=== PATIENT | male | born 1995 | race American Indian/Alaskan Native ===

== ENCOUNTER 2017-07-13 10:17 | Emergency (ER) | payer SELFPAY ==
[2017-07-13 10:30] VITALS: BP 135/75
[2017-07-13] MEDS ORDERED: MOTRIN PO ONE (11:32)
--- NOTE | 2017-07-13 11:36 | Emergency Department Report ---
ED ENT HPI - General Chief complaint: Dental/Oral Stated complaint: TOOTHACHE Time Seen by Provider: 07/13/17 11:20 Source: patient Mode of arrival: Ambulatory Limitations: No Limitations - History of Present Illness Initial comments: This is a 21-year-old male nontoxic, well nourished in appearance, no acute signs of distress presents to the ED with c/o of left dental pain x2 days. Patient denies any facial swelling, nausea, vomiting, chest pain, shortness of breathe, fever, chills, headache, numbness, or tingling. Patient denies any allergies or PMH. Denies follow-up with dentist. MD complaint: tooth pain -: days(s) (2) Location: tooth # (19) 1 - toothache Severity: mild Severity scale (0 -10): 8 Quality: aching Consistency: constant Improves with: none Worsens with: none Associated Symptoms: gum swelling, toothache. denies: fever, cough, pain with swallowing, sore throat, tinnitus, hearing loss, discharge from ear, rhinorrhea - Related Data Home Medications Medication Instructions Recorded Confirmed Last Taken Divalproex Sodium [Depakote] 500 mg PO DAILY 03/28/17 03/28/17 2 Weeks Ago ~03/14/17 Previous Rx's Medication Instructions Recorded Last Taken Type Divalproex Sodium [Depakote] 500 mg PO DAILY #60 tablet. 03/28/17 Unknown Rx Amoxicillin/K Clav Tab [Augmentin 1 tab PO Q12HR #20 tab 07/13/17 Unknown Rx 875 mg] Chlorhexidine Mouthwash [Peridex] 15 ml MM BID #1 bottle 07/13/17 Unknown Rx Ibuprofen [Motrin] 600 mg PO Q8H PRN #30 tablet 07/13/17 Unknown Rx Allergies Allergy/AdvReac Type Severity Reaction Status Date / Time No Known Allergies Allergy Unverified 03/28/17 13:56 ED Dental HPI - General Chief complaint: Dental/Oral Stated complaint: TOOTHACHE Time Seen by Provider: 07/13/17 11:20 Source: patient Mode of arrival: Ambulatory Limitations: No Limitations - Related Data Home Medications Medication Instructions Recorded Confirmed Last Taken Divalproex Sodium [Depakote] 500 mg PO DAILY 03/28/17 03/28/17 2 Weeks Ago ~03/14/17 Previous Rx's Medication Instructions Recorded Last Taken Type Divalproex Sodium [Depakote] 500 mg PO DAILY #60 tablet. 03/28/17 Unknown Rx Amoxicillin/K Clav Tab [Augmentin 1 tab PO Q12HR #20 tab 07/13/17 Unknown Rx 875 mg] Chlorhexidine Mouthwash [Peridex] 15 ml MM BID #1 bottle 07/13/17 Unknown Rx Ibuprofen [Motrin] 600 mg PO Q8H PRN #30 tablet 07/13/17 Unknown Rx Allergies Allergy/AdvReac Type Severity Reaction Status Date / Time No Known Allergies Allergy Unverified 03/28/17 13:56 ED Review of Systems ROS: Stated complaint: TOOTHACHE Other details as noted in HPI Constitutional: denies: chills, fever Eyes: denies: eye pain, eye discharge, vision change ENT: dental pain. denies: ear pain, throat pain Respiratory: denies: cough, shortness of breath, wheezing Cardiovascular: denies: chest pain, palpitations Endocrine: no symptoms reported Gastrointestinal: denies: abdominal pain, nausea, diarrhea Genitourinary: denies: urgency, dysuria Musculoskeletal: denies: back pain, joint swelling, arthralgia Skin: denies: rash, lesions Neurological: denies: headache, weakness, paresthesias Psychiatric: denies: anxiety, depression Hematological/Lymphatic: denies: easy bleeding, easy bruising ED Past Medical Hx - Past Medical History Hx Seizures: Yes - Surgical History Past Surgical History?: No - Social History Smoking Status: Never Smoker Substance Use Type: None - Medications Home Medications: Home Medications Medication Instructions Recorded Confirmed Last Taken Type Divalproex Sodium [Depakote] 500 mg PO DAILY 03/28/17 03/28/17 2 Weeks Ago History ~03/14/17 Divalproex Sodium [Depakote] 500 mg PO DAILY #60 tablet. 03/28/17 Unknown Rx Amoxicillin/K Clav Tab [Augmentin 1 tab PO Q12HR #20 tab 07/13/17 Unknown Rx 875 mg] Chlorhexidine Mouthwash [Peridex] 15 ml MM BID #1 bottle 07/13/17 Unknown Rx Ibuprofen [Motrin] 600 mg PO Q8H PRN #30 tablet 07/13/17 Unknown Rx ED Physical Exam - General Limitations: No Limitations General appearance: alert, in no apparent distress - Head Head exam: Present: atraumatic, normocephalic - Eye Eye exam: Present: normal appearance - ENT ENT exam: Present: mucous membranes moist, TM's normal bilaterally, normal external ear exam - Expanded ENT Exam Expanded Ear exam: Present: normal external inspection Mouth exam: Present: normal external inspection, tongue normal. Absent: drooling, trismus, muffled voice, tongue elevation, laceration Teeth exam: Present: dental caries, fractured tooth # (19), dental tenderness # (19), gingival enlargement, other (No facial swelling. ) 1 - Fractured, Dental Tenderness Throat exam: Positive: normal inspection, other (Uvula midline. No abscess or swelling noted. ). Negative: tonsillar erythema, tonsillomegaly, tonsillar exudate, R peritonsillar mass, L peritonsillar mass - Neck Neck exam: Present: normal inspection, full ROM. Absent: tenderness, meningismus, lymphadenopathy, thyromegaly - Respiratory Respiratory exam: Present: normal lung sounds bilaterally. Absent: respiratory distress, wheezes, rales, rhonchi, stridor, chest wall tenderness, accessory muscle use, decreased breath sounds, prolonged expiratory - Cardiovascular Cardiovascular Exam: Present: regular rate, normal rhythm, normal heart sounds. Absent: bradycardia, tachycardia, irregular rhythm, systolic murmur, diastolic murmur, rubs, gallop - GI/Abdominal GI/Abdominal exam: Present: soft, normal bowel sounds. Absent: distended, tenderness, guarding, rebound, rigid, diminished bowel sounds - Rectal Rectal exam: Present: deferred - Extremities Exam Extremities exam: Present: normal inspection - Back Exam Back exam: Present: normal inspection - Neurological Exam Neurological exam: Present: alert, oriented X3 - Psychiatric Psychiatric exam: Present: normal affect, normal mood - Skin Skin exam: Present: warm, dry, intact, normal color. Absent: rash ED Course Vital Signs 07/13/17 10:27 Temperature 98.6 F Pulse Rate 64 Respiratory 17 Rate Blood Pressure 135/75 O2 Sat by Pulse 99 Oximetry - Reevaluation(s) Reevaluation #1: 07/13/17 11:35 Patient is speaking in full sentences with no signs of distress noted. Critical care attestation.: If time is entered above; I have spent that time in minutes in the direct care of this critically ill patient, excluding procedure time. ED Disposition Clinical Impression: Dental caries, Gingivitis Disposition: DC- TO HOME OR SELFCARE Is pt being admited?: No Does the pt Need Aspirin: No Condition: Stable Instructions: Dental Caries (ED), Gingivitis (ED), Amoxicillin/Clavulanate Potassium (By mouth), Ibuprofen (By mouth) Additional Instructions: Follow-up with a dentist in 3-5 days or if symptoms worsen and continue return to emergency room as soon as possible. Prescriptions: Amoxicillin/K Clav Tab [Augmentin 875 mg] 1 tab PO Q12HR #20 tab Chlorhexidine Mouthwash [Peridex] 15 ml MM BID #1 bottle Ibuprofen [Motrin] 600 mg PO Q8H PRN #30 tablet PRN Reason: Pain Referrals: PRIMARY CAREMD [Primary Care Provider] - 3-5 Days RIP WILLIAM MD [Staff Physician] - 3-5 Days [facility] [Outside] - 3-5 Days [facility] [Outside] - 3-5 Days Forms: Work/School Release Form(ED)
== END 2017-07-13 11:52 | disposition home or self-care (01) ==
LOC: ED 10:17
DX: K05.10 Chronic gingivitis, plaque induced (principal); K02.9 Dental caries, unspecified
CPT/HCPCS: 99282

== ENCOUNTER 2017-07-16 20:00 | Emergency (ER) | payer SELFPAY ==
[2017-07-16 22:09] LABS: Basophils % (Auto) 0.4 % (0.0-1.8); Eosinophils % (Auto) 0.3 % (0.0-4.3); Hematocrit 47.1 % (35.5-45.6); Hemoglobin 15.7 gm/dl (11.8-15.2); Lymphocytes # (Auto) 1.8 K/mm3 (1.2-5.4); Lymphocytes % (Auto) 26.7 % (13.4-35.0); Mean Corpuscular HGB Conc 33 % (32-34); Mean Corpuscular Hemoglobin 29 pg (28-32); Mean Corpuscular Volume 88 fl (84-94); Monocytes # (Auto) 0.6 K/mm3 (0.0-0.8); Monocytes % (Auto) 8.9 % (0.0-7.3); Platelet Count 227 K/mm3 (140-440); Red Blood Count 5.37 M/mm3 (3.65-5.03); Red Cell Distribution Width 13.8 % (13.2-15.2)
[2017-07-16 22:28] LABS: Alanine Aminotransferase 6 units/L (7-56); Albumin 3.6 g/dL (3.9-5); BUN/Creatinine Ratio 10; Blood Urea Nitrogen 11 mg/dL (9-20); Calcium 9.2 mg/dL (8.4-10.2); Hemolysis Index 22; Lipase 16 units/L (13-60)
[2017-07-16 22:29] LABS: Bacteria,Urine 1+ /HPF (Negative); Bilirubin,Urine NEG (Negative); Blood,Urine SM (Negative); Color,Urine Yellow (Yellow); Mucus,Urine FEW /HPF; Nitrite,Urine NEG (Negative); Urobilinogen,Urine < 2.0 mg/dL (<2.0)
[2017-07-17] MEDS ORDERED: NACL 0.9% 1000 ML 1,000 ML IV ONE (03:16)
[2017-07-17] MEDS ORDERED: ZOFRAN IV ONE (03:16)
--- NOTE | 2017-07-17 04:07 | XRay Report ---
FINAL REPORT PROCEDURE: XR ABDOMEN 2V TECHNIQUE: Abdominal series, including supine and upright AP views. HISTORY: Abd pain COMPARISON: No prior studies are available for comparison. FINDINGS: Bowel gas pattern:Nonobstructive . Masses or calcifications:There are numerous stone like densities along the left side of the lumbar spine which could be ureteral stones versus calcified mesenteric lymph nodes, or phleboliths... Bony structures:No significant abnormality . Pneumoperitoneum:None . Other:No significant findings . IMPRESSION: There is no bowel obstruction, fecal impaction, bowel wall thickening or free air.. There are numerous stone like densities along the left side of the lumbar spine which could be ureteral stones versus calcified mesenteric lymph nodes, or phleboliths...
[2017-07-17 05:58] VITALS: BP 107/50
--- NOTE | 2017-07-17 06:31 | Emergency Department Report ---
HPI - General Chief Complaint: Abdominal Pain Time Seen by Provider: 07/17/17 03:16 - HPI HPI: 21-year-old -[place]ag[place] male presents to the emergency department with complaint of some upper abdominal pain, nausea and vomiting has been going on for the past week. He denies any past medical history other than seizures. He does not have a primary care physician. He has not taken anything for her symptoms by presentation. He says that he vomits about 3 times per day. No recent travel or sick contacts at home. ED Past Medical Hx - Past Medical History Hx Seizures: Yes - Surgical History Past Surgical History?: No - Social History Smoking Status: Current Every Day Smoker Substance Use Type: None - Medications Home Medications: Home Medications Medication Instructions Recorded Confirmed Last Taken Type Divalproex Sodium [Depakote] 500 mg PO DAILY 03/28/17 03/28/17 2 Weeks Ago History ~03/14/17 Divalproex Sodium [Depakote] 500 mg PO DAILY #60 tablet. 03/28/17 Unknown Rx Amoxicillin/K Clav Tab [Augmentin 1 tab PO Q12HR #20 tab 07/13/17 Unknown Rx 875 mg] Chlorhexidine Mouthwash [Peridex] 15 ml MM BID #1 bottle 07/13/17 Unknown Rx Ibuprofen [Motrin] 600 mg PO Q8H PRN #30 tablet 07/13/17 Unknown Rx Ondansetron [Zofran Odt] 4 mg PO Q8H PRN #10 tab.rapdis 07/17/17 Unknown Rx ED Review of Systems ROS: Stated complaint: ABD PAIN; N/V Other details as noted in HPI Comment: All other systems reviewed and negative Constitutional: denies: chills, fever Eyes: denies: eye pain, eye discharge, vision change ENT: denies: ear pain, throat pain Respiratory: denies: cough, shortness of breath, wheezing Cardiovascular: denies: chest pain, palpitations Gastrointestinal: abdominal pain, nausea, vomiting Genitourinary: denies: urgency, dysuria Musculoskeletal: denies: back pain, joint swelling, arthralgia Skin: denies: rash, lesions Neurological: denies: headache, weakness, paresthesias Physical Exam - Physical Exam Vital Signs: Vital Signs 07/16/17 07/17/17 07/17/17 21:47 02:23 02:31 Temperature 98.2 F Pulse Rate 63 62 64 Respiratory 16 11 L 16 Rate Blood Pressure 139/81 O2 Sat by Pulse 98 96 Oximetry 07/17/17 07/17/17 07/17/17 02:36 02:45 03:01 Temperature 98 F Pulse Rate Respiratory 15 17 Rate Blood Pressure O2 Sat by Pulse 98 97 Oximetry 07/17/17 07/17/17 07/17/17 03:15 04:11 04:15 Temperature Pulse Rate 62 61 Respiratory 19 18 17 Rate Blood Pressure 117/57 O2 Sat by Pulse 96 96 96 Oximetry 07/17/17 07/17/17 07/17/17 04:31 04:45 05:00 Temperature Pulse Rate 67 70 69 Respiratory 16 17 18 Rate Blood Pressure 117/57 116/58 109/45 O2 Sat by Pulse 97 96 94 Oximetry 07/17/17 07/17/17 07/17/17 05:15 05:30 05:45 Temperature Pulse Rate 67 Respiratory 19 Rate Blood Pressure 105/42 107/50 107/50 O2 Sat by Pulse 94 95 97 Oximetry Physical Exam: GENERAL: The patient is well-developed well-nourished. HENT: Normocephalic. Atraumatic. Patient has moist mucous membranes. EYES: Extraocular motions are intact. Pupils equal reactive to light bilaterally. NECK: Supple. Trachea is midline. CHEST/LUNGS: Clear to auscultation. There is no respiratory distress noted. HEART/CARDIOVASCULAR: Regular. There is no tachycardia. There is no murmur. ABDOMEN: Abdomen is soft. Mild upper abdominal tenderness to palpation. No guarding rebound tenderness. Patient has normal bowel sounds. There is no abdominal distention. SKIN: Skin is warm and dry. NEURO: The patient is awake, alert, and oriented. The patient is cooperative. The patient has no focal neurologic deficits. The patient has normal speech. MUSCULOSKELETAL: There is no tenderness or deformity. There is no limitation range of motion. There is no evidence of acute injury. ED Course Vital Signs 07/16/17 07/17/17 07/17/17 21:47 02:23 02:31 Temperature 98.2 F Pulse Rate 63 62 64 Respiratory 16 11 L 16 Rate Blood Pressure 139/81 O2 Sat by Pulse 98 96 Oximetry 07/17/17 07/17/17 07/17/17 02:36 02:45 03:01 Temperature 98 F Pulse Rate Respiratory 15 17 Rate Blood Pressure O2 Sat by Pulse 98 97 Oximetry 07/17/17 07/17/17 07/17/17 03:15 04:11 04:15 Temperature Pulse Rate 62 61 Respiratory 19 18 17 Rate Blood Pressure 117/57 O2 Sat by Pulse 96 96 96 Oximetry 07/17/17 07/17/17 07/17/17 04:31 04:45 05:00 Temperature Pulse Rate 67 70 69 Respiratory 16 17 18 Rate Blood Pressure 117/57 116/58 109/45 O2 Sat by Pulse 97 96 94 Oximetry 07/17/17 07/17/17 07/17/17 05:15 05:30 05:45 Temperature Pulse Rate 67 Respiratory 19 Rate Blood Pressure 105/42 107/50 107/50 O2 Sat by Pulse 94 95 97 Oximetry ED Medical Decision Making - Lab Data Result diagrams: 07/16/17 21:54 07/16/17 21:54 - Radiology Data Radiology results: image reviewed interpreted by me: Abdominal x-ray shows nonspecific nonobstructive bowel gas. There is a large amount of stool throughout the intestines. - Medical Decision Making Patient presents with a one-week history of some abdominal pain, nausea and vomiting. Every time the patient was evaluated and/or reassessed, he is sleeping and resting comfortably but easily arousable. Vital signs stable throughout his ED course including being afebrile. Labs are unremarkable including no leukocytosis, no electrolyte abnormalities. He has normal belly labs including bilirubin, lipase and LFTs. He has a few white blood cells in the urine but is negative for leukocyte esterase and nitrites and has no complaints of dysuria and denies being sexually active. Abdominal x-ray shows nonspecific nonobstructive bowel gas. The patient was given some Zofran and IV fluid resuscitation. He was then able to pass an oral challenge prior to discharge home. He'll be discharged home with a prescription for Zofran and a referral for primary care and gastroenterology. He was encouraged to return to the emergency department with any intractable vomiting, worsening of his abdominal pain, or any acute distress. - Differential Diagnosis gastroenteritis, food poisoning, pancreatitis, cholecystitis Critical Care Time: No Critical care attestation.: If time is entered above; I have spent that time in minutes in the direct care of this critically ill patient, excluding procedure time. ED Disposition Clinical Impression: Nausea & vomiting Qualifiers: Vomiting type: unspecified Vomiting Intractability: non-intractable Qualified Code(s): R11.2 - Nausea with vomiting, unspecified Abdominal pain Qualifiers: Abdominal location: upper abdomen, unspecified Qualified Code(s): R10.10 - Upper abdominal pain, unspecified Disposition: TO HOME OR SELFCARE Is pt being admited?: No Condition: Stable Instructions: Acute Nausea and Vomiting (ED), Abdominal Pain (ED) Additional Instructions: Please follow up with a primary care physician in the next few days. Increase your oral rehydration. Return to the emergency Department with any worsening of your symptoms or any acute distress. I have given you a referral for a local envelope addresser, Dr. Dunn, in case you need to follow up regarding your abdominal pain. Prescriptions: Ondansetron [Zofran Odt] 4 mg PO Q8H PRN #10 tab.rapdis PRN Reason: Nausea Referrals: PRIMARY CARE, [Primary Care Provider] - 3-5 Days SAMARA HUI MD [Staff Physician] - 3-5 Days GUERRERO DUNN MD [Staff Physician] - 3-5 Days Time of Disposition: 06:31
== END 2017-07-17 07:01 | disposition home or self-care (01) ==
LOC: ED 20:00
DX: R11.2 Nausea with vomiting, unspecified (principal); R10.10 Upper abdominal pain, unspecified; F17.200 Nicotine dependence, unspecified, uncomplicated
CPT/HCPCS: 36415; 74019; 80053; 81001; 83690; 85025; 96361; 96374; 99284; J2405; J7030